=== PATIENT | female | born 1945 | race Two or more races ===

== ENCOUNTER 2024-07-14 11:26 | Inpatient (IN) | payer OTHER ==
[~2024-07-14] VITALS: Ht 165.1 cm; Wt 70.6 kg
[~2024-07-14 11:26] MED LIST: ASPI81TA28 PO; ATOR20TA50 PO; BACL5TAB2 PO; CALC-479 PO; CYCL0.05 EACHEYE; DICL1GEL73 TD; FEXO-47 PO; GABA-1308 PO; MAGN400T40 PO; MECL-90 PO; METO25TA5 PO; RIVA20TA PO
[2024-07-14 12:12] LABS: Basophils # (auto) 0.1 10 ^3/uL (0-0.2); Basophils % (auto) 1.2 % (0.0-2.0); Eosinophils # (auto) 0.1 10 ^3/uL (0-0.8); Eosinophils % (auto) 1.8 % (0.0-7.0); Hematocrit 42.7 % (36.0-46.0); Hemoglobin 14.6 g/dL (12.2-16.2); Lymphocytes # (auto) 1.5 10 ^3/uL (0.4-5.4); Lymphocytes % (auto) 22.6 % (10.0-50.0); Mean Corpuscular Hgb Conc. 34.3 g/dL (32.0-36.0); Mean Corpuscular Volume 96.1 fL (80.0-100.0); Monocytes # (auto) 0.5 10 ^3/uL (0-1.3); Monocytes % (auto) 7.1 % (0.0-12.0); Neutrophils # (auto) 4.5 10 ^3/uL (1.6-8.6); Neutrophils % (auto) 67.3 % (37.0-80.0); Platelet Count (auto) 206 10^3/uL (140-450); Red Blood Cells 4.44 10^6/uL (4.0-5.20); Red Cell Distribution Width 14.2 % (11.8-14.3); White Blood Cell 6.7 10^3/uL (4.4-10.8)
[2024-07-14 12:25] LABS: Alanine Aminotransferase 35 U/L (7-40); Albumin 4.2 g/dL (3.2-4.8); Alkaline Phosphatase 98 U/L (46-116); Anion Gap 8 (5-15); Aspartate Aminotransferase 31 U/L (13-40); BUN/Creatinine Ratio 15.2 (10.0-20.0); Blood Urea Nitrogen 14 mg/dL (9-23); Carbon Dioxide 27 mmol/L (20-31); Chloride 110 mmol/L (98-107); Glucose 150 mg/dL (74-106); Potassium 3.9 mmol/L (3.5-5.1); Sodium 145 mmol/L (136-145)
[2024-07-14 12:26] LABS: Bilirubin, Total 1.6 mg/dL (0.2-1.0); Total Protein 6.7 g/dL (5.7-8.2)
[2024-07-14] MEDS: ASPirin 81 mg TAB PO ONE ×2 (12:53→20:45)
[2024-07-14 18:42] LABS: Urine Bacteria FEW /hpf (None Seen); Urine Blood Negative /uL (Negative); Urine Clarity Turbid (Clear); Urine Color Yellow (Yellow); Urine Mucus FEW (None Seen); Urine Protein, UAD Negative (Negative); Urine Urobilinogen Normal (Negative); Urine WBC 40 /hpf (0 - 5); Urine pH 6.5 (5.0-9.0)
[2024-07-14 20:25] VITALS: PULSE 54; RESP 16; O2SAT 96
[2024-07-14] MEDS ORDERED: MORPHINE SULFATE INJ 2 MG/ml SYRG IV PRN (20:45)
[2024-07-14] MEDS ORDERED: ACETAMINOPHEN 500 MG TAB PO PRN (20:45)
[2024-07-14] MEDS: ATORVASTATIN 20 MG TAB PO ONE (20:45)
[2024-07-14 21:14] LABS: Amphetamine Screen, Urine Neg (NEGATIVE); Barbiturate Scree,Urine Neg (NEGATIVE); Benzodiazephine Screen, Urine Neg (NEGATIVE); Cannabinoid Screen, Urine Neg (NEGATIVE); Cocaine Screen, Urine Neg (NEGATIVE); Opiate Scree,Urine Neg (NEGATIVE); Phencyclidine Screen, Urine Neg (NEGATIVE)
[2024-07-14 22:35] LABS: INR 1.25 (0.9-1.15); Partial Thromboplastin Time 35.4 SEC (24.5-34.5)
[2024-07-15] VITALS (11 sets, daily range): BP systolic 116–182; BP diastolic 57–80; PULSE 60–117; RESP 14–18; TEMP 97.7–99.6; O2SAT 94–98
[2024-07-15] MEDS ORDERED: hydrALAZINE HCL 20 MG/ML VL IV PRN (01:00)
[2024-07-15] MEDS: ENOXAPARIN SOD 100 MG/1 ML SYRINGE SC ONE (03:46)
[2024-07-15] MEDS: FUROSEMIDE 20 MG/2 ML VIAL IV ONE (03:46)
[2024-07-15] MEDS: cefTRIAXone 1GM/50ML D5W 50 ML IV SCH (03:46)
[2024-07-15] MEDS ORDERED: SODIUM CHLORIDE 0.9% 1,000 ML IV SCH (04:00)
[2024-07-15] MEDS ORDERED: NITROGLYCERIN 0.4 MG SL TAB SL PRN (04:30)
[2024-07-15 09:28] LABS: Basophils # (auto) 0.1 10 ^3/uL (0-0.2); Basophils % (auto) 1.2 % (0.0-2.0); Eosinophils # (auto) 0.1 10 ^3/uL (0-0.8); Eosinophils % (auto) 1.3 % (0.0-7.0); Hematocrit 44.5 % (36.0-46.0); Hemoglobin 15.1 g/dL (12.2-16.2); Lymphocytes # (auto) 1.6 10 ^3/uL (0.4-5.4); Lymphocytes % (auto) 22.6 % (10.0-50.0); Mean Corpuscular Hemoglobin 32.3 pg (28.0-32.0); Mean Corpuscular Volume 94.8 fL (80.0-100.0); Monocytes # (auto) 0.7 10 ^3/uL (0-1.3); Monocytes % (auto) 9.9 % (0.0-12.0); Neutrophils # (auto) 4.5 10 ^3/uL (1.6-8.6); Nucleated Red Blood Cells % 0.1 %; Platelet Count (auto) 216 10^3/uL (140-450); Red Blood Cells 4.69 10^6/uL (4.0-5.20); Red Cell Distribution Width 14.2 % (11.8-14.3); White Blood Cell 6.9 10^3/uL (4.4-10.8)
[2024-07-15 09:57] LABS: Chloride 109 mmol/L (98-107); Potassium 3.6 mmol/L (3.5-5.1); Sodium 146 mmol/L (136-145)
[2024-07-15 09:58] LABS: Anion Gap 8 (5-15); Calcium 9.6 mg/dL (8.7-10.4); Carbon Dioxide 29 mmol/L (20-31)
[2024-07-15 10:03] LABS: BUN/Creatinine Ratio 17.4 (10.0-20.0); Blood Urea Nitrogen 16 mg/dL (9-23); Glucose 101 mg/dL (74-106); Triglycerides 65 mg/dL (< 150)
[2024-07-15 10:04] LABS: LDL Cholesterol 41 mg/dL (< 100)
[2024-07-15 10:05] LABS: Cholesterol 114 mg/dL (< 200); HDL Cholesterol 60 mg/dL (40-59)
[2024-07-15] MEDS: FUROSEMIDE 20 MG/2 ML VIAL IV SCH (10:30)
[2024-07-15] MEDS: ASPirin 81 mg TAB PO SCH (10:33)
[2024-07-15] MEDS ORDERED: OMEG1CAP87 PO (13:18)
[2024-07-15] MEDS ORDERED: MULT-1153 PO (13:18)
[2024-07-15] MEDS ORDERED: B COCAP12 PO (13:18)
[2024-07-15] MEDS ORDERED: BACL10TA PO (13:18)
[2024-07-15] MEDS ORDERED: METO-158 PO (13:18)
[2024-07-15] MEDS ORDERED: CYAN-17 PO (13:18)
[2024-07-15] MEDS ORDERED: ERGO20002 PO (13:18)
[2024-07-15] MEDS ORDERED: MELA10CA PO (13:18)
[2024-07-15] MEDS ORDERED: FEXO-42 PO (13:18)
[2024-07-15] MEDS ORDERED: ARTISOL13 EACHEYE (13:18)
[2024-07-15] MEDS: ENOXAPARIN SOD 80 MG/0.8ML SYRINGE SC ONE (16:29)
[2024-07-15] MEDS: ATORVASTATIN 20 MG TAB PO SCH (21:15)
[2024-07-15] MEDS: METOPROLOL TARTRATE 25 MG TAB PO SCH (21:15)
[2024-07-15] MEDS: ENOXAPARIN SOD 100 MG/1 ML SYRINGE SC SCH (22:00)
[2024-07-15] MEDS ORDERED: ENOXAPARIN SOD 80 MG/0.8ML SYRINGE SC SCH (22:00)
[2024-07-16] VITALS (8 sets, daily range): BP systolic 109–159; BP diastolic 57–98; PULSE 58–118; RESP 16–18; TEMP 98–99; O2SAT 91–100
[2024-07-16 06:47] LABS: Basophils # (auto) 0.1 10 ^3/uL (0-0.2); Basophils % (auto) 2.1 % (0.0-2.0); Eosinophils # (auto) 0.2 10 ^3/uL (0-0.8); Eosinophils % (auto) 2.3 % (0.0-7.0); Hematocrit 45.1 % (36.0-46.0); Hemoglobin 15.4 g/dL (12.2-16.2); Lymphocytes # (auto) 2.1 10 ^3/uL (0.4-5.4); Lymphocytes % (auto) 31.1 % (10.0-50.0); Mean Corpuscular Hemoglobin 32.7 pg (28.0-32.0); Mean Corpuscular Hgb Conc. 34.2 g/dL (32.0-36.0); Mean Corpuscular Volume 95.4 fL (80.0-100.0); Monocytes # (auto) 0.7 10 ^3/uL (0-1.3); Monocytes % (auto) 11.1 % (0.0-12.0); Neutrophils # (auto) 3.5 10 ^3/uL (1.6-8.6); Neutrophils % (auto) 53.4 % (37.0-80.0); Nucleated Red Blood Cells % 0.1 %; Platelet Count (auto) 221 10^3/uL (140-450); Red Blood Cells 4.72 10^6/uL (4.0-5.20); Red Cell Distribution Width 14.1 % (11.8-14.3); White Blood Cell 6.6 10^3/uL (4.4-10.8)
[2024-07-16 07:01] LABS: Anion Gap 10 (5-15); Carbon Dioxide 28 mmol/L (20-31); Chloride 107 mmol/L (98-107); Potassium 3.3 mmol/L (3.5-5.1); Sodium 145 mmol/L (136-145)
[2024-07-16 07:02] LABS: Calcium 9.5 mg/dL (8.7-10.4)
[2024-07-16 07:07] LABS: BUN/Creatinine Ratio 18.2 (10.0-20.0); Blood Urea Nitrogen 18 mg/dL (9-23); Glucose 103 mg/dL (74-106)
[2024-07-16] MEDS: POTASSIUM CHL 20 Meq TABLET PO ONE (09:16)
[2024-07-16 18:34] LABS: INR 1.09 (0.9-1.15); Partial Thromboplastin Time 29.8 SEC (24.5-34.5); Prothrombin Time 11.5 sec (9.3-11.8)
[2024-07-16] MEDS: MELATONIN 5 MG TAB PO ONE (22:21)
[2024-07-17] VITALS (10 sets, daily range): BP systolic 81–125; BP diastolic 45–74; PULSE 55–93; RESP 12–20; TEMP 97.6–98.7; O2SAT 96–100
[2024-07-17 08:22] LABS: Anion Gap 7 (5-15); Carbon Dioxide 29 mmol/L (20-31); Chloride 109 mmol/L (98-107); Potassium 3.8 mmol/L (3.5-5.1); Sodium 145 mmol/L (136-145)
[2024-07-17 08:24] LABS: Calcium 9.7 mg/dL (8.7-10.4)
[2024-07-17 08:28] LABS: BUN/Creatinine Ratio 24.7 (10.0-20.0); Blood Urea Nitrogen 24 mg/dL (9-23); Glucose 104 mg/dL (74-106)
[2024-07-17] MEDS ORDERED: ENOXAPARIN SOD 40 MG/0.4 ML SYRINGE SC SCH (10:00)
[2024-07-17] MEDS: IODIXANOL 320MG/ML 100ML BTL IV ONE (12:12)
[2024-07-17] MEDS: HEPARIN IN NS 1000Units/500mL 1,500 ML ONE (12:12)
[2024-07-17] MEDS: fentaNYL CITRATE 100 MCG/2 ML VL ONE (12:43)
[2024-07-17] MEDS: HEPARIN SODIUM (PORCINE) 5000 UNITS/ML 1ML VIAL ONE (12:43)
[2024-07-17] MEDS: MIDAZOLAM HCL 2MG/2ML 2ml VIAL (1mg/ml) ONE (12:44)
[2024-07-17] MEDS: ANGIOMAX 250 MG VIAL IV ONE (12:44)
[2024-07-17] MEDS: VERAPAMIL 2.5MG/ML INJ 2ML VIAL IV ONE (12:44)
[2024-07-17] MEDS: SODIUM CHL 0.9% 0 ML ONE (12:44)
[2024-07-17] MEDS: LIDOCAINE 2%HCL (LOCAL ANESTH.) INJ 20ML MDV ONE (12:44)
[2024-07-17] MEDS: MELATONIN 5 MG TAB PO ONE (20:52)
[2024-07-18 00:51] VITALS: BP 98/45; PULSE 76; RESP 17; TEMP 98.2; O2SAT 94
[2024-07-18 05:00] VITALS: BP 125/59; PULSE 64; RESP 16; TEMP 98; O2SAT 95
[2024-07-18 07:16] LABS: Anion Gap 7 (5-15); Carbon Dioxide 27 mmol/L (20-31); Chloride 109 mmol/L (98-107); Potassium 3.7 mmol/L (3.5-5.1); Sodium 143 mmol/L (136-145)
[2024-07-18 07:17] LABS: Calcium 9.2 mg/dL (8.7-10.4)
[2024-07-18 07:22] LABS: BUN/Creatinine Ratio 23.7 (10.0-20.0); Blood Urea Nitrogen 22 mg/dL (9-23); Glucose 107 mg/dL (74-106)
[2024-07-18 08:00] VITALS: PULSE 55; PULSE 58; RESP 16; O2SAT 98
[2024-07-18 09:00] VITALS: BP 124/58; PULSE 58; RESP 16; TEMP 98.4; O2SAT 98
[2024-07-18] MEDS ORDERED: ATOR20TA50 PO (09:00)
[2024-07-18] MEDS ORDERED: CEPH250C PO (09:00)
[2024-07-18] MEDS ORDERED: CLOP75TA28 PO (09:25)
[2024-07-18] MEDS ORDERED: ASPI81TA28 PO (09:25)
[2024-07-18 12:30] VITALS: BP 126/82; PULSE 70; RESP 18; TEMP 98.3; O2SAT 96
[2024-07-18 13:45] VITALS: BP 124/58; PULSE 135
== END 2024-07-18 15:00 | disposition home or self-care (01) | DRG 190 ==
LOC: ER 11:26 → TELE-CENTR 23:14 → TELE 23:14 → TELE-CENTR 07-15 03:22
PROVIDERS: ADMIT Internal Medicine; ATTEND Internal Medicine
PROC: B211YZZ Fluoroscopy of Multiple Coronary Arteries using Other Contrast (ICD-10-PCS; principal; 2024-07-17)
PROC: 4A023N7 Measurement of Cardiac Sampling and Pressure, Left Heart, Percutaneous Approach (ICD-10-PCS; 2024-07-17)
DX: I21.4 Non-ST elevation (NSTEMI) myocardial infarction (principal); I50.33 Acute on chronic diastolic (congestive) heart failure; I11.0 Hypertensive heart disease with heart failure; E78.5 Hyperlipidemia, unspecified; N30.00 Acute cystitis without hematuria; J98.11 Atelectasis; R91.1 Solitary pulmonary nodule; D35.01 Benign neoplasm of right adrenal gland; R73.03 Prediabetes; I48.91 Unspecified atrial fibrillation; Z86.73 Personal history of transient ischemic attack (TIA), and cerebral infarction without residual deficits; Z79.01 Long term (current) use of anticoagulants
CPT/HCPCS: 36415; 70450; 71046; 71250; 80048; 80053; 80061; 80307; 81001; 82306; 82607; 82962; 83036; 83735; 83880; 84443; 84484; 85025; 85610; 85730; 86850; 86900; 86901; 87086; 93005; 93306; 93458; 93886; 99152; G0378; J2250; Q9967

== ENCOUNTER 2025-09-11 20:39 | Inpatient (IN) | payer MEDICAID, OTHER ==
[~2025-09-11] VITALS: Ht 157.5 cm; Wt 71.0 kg
[~2025-09-11 20:39] MED LIST changes: +ARTISOL13 EACHEYE; +B COCAP12 PO; +CEPH250C PO; +CLOP75TA28 PO; +CYAN-17 PO; +ERGO20002 PO; +MELA10CA PO; +MULT-1153 PO; +OMEG1CAP87 PO
--- NOTE | 2025-09-11 21:15 | ED.PDOC ---
HPI Comments HPI: 80 y/o F, BIBA, with PMHx of AFib and HTN presents to the ED for CC of chest pain. EMS reports, patient is coming from home where she c/o left-sided chest pain s/p argument with her . Patient relays, chest pain to radiate to her back and to worsen with movement. Per EMS, patient took Nitroglycerin prior to their arrival and denied medications en route to the ED. At this time patient c/o 5/10 chest pain. Patient denies shortness of breath, palpitations, dizzine ss, or nausea. No other symptoms or modifying factors are present at this time. PMHx: AFIB, HTN SHX: Denies Any Rx: PLAVIX Allergies: SULMA VASQUEZ: CP, normal exam. HPI: Poor Historian. Patient has extreme medicine in the evening. She has not take her medications yet. REVIEW OF SYSTEMS: CONSTITUTIONAL: Denies acute: fever, diaphoresis, chills, generalized weakness. HEAD: Denies acute: headache, photophobia Eyes: Denies acute: Double vision, vision loss, eye pain, eye discharge. EARS: Denies acute: tinnitus, hearing loss, ear discharge, ear pain, THROAT: Denies acute: sore throat, swelling, difficulty swallowing , pain with swallowing, change in voice. NECK: Denies acute: neck pain, neck swelling, stiff neck. HEART: Denies acute : palpitations, LUNGS: Denies acute: SOB, wheezing, cough, hemoptysis ABDOMEN: Denies acute: abdominal pain, Nausea, Vomiting, diarrhea, melena , hematemesis, hematochezia SKIN: Denies acute: rash, redness, lesions, itchiness. EXTREMITIES: Denies acute: calf pain, numbness, tingling, weakness, denies pain in extremity. Denies acute: Low back pain. Neuro: Denies acute: focal neurological deficit, motor or sensory focal neurological deficit, tremors, seizure like activity, confusion, dizziness, change in mental status, loss of bowel or bladder function, cauda equina like symptoms. : Denies acute: dysuria, hematuria, flank pain, increase in urinary frequency. PSYCH: Denies acute: hallucination, suicidal ideation, homicidal ideation. FEMALE: Denies acute: abnormal vaginal bleeding, foul odor, unusual discharge. PHYSICAL EXAM: General: ----mild----acute distress, awake and alert. Head: normocephalic, atraumatic. No raccoon's eyes, no carrasco sign. Neck: supple, trachea is midline, no swelling. Throat: Normal phonation. Eyes:, no erythema, no purulent discharge, no proptosis, no icterus. Heart: regular rate, regular rhythm, no significant murmur appreciated. Lungs: no apparent respiratory distress, Able to speak in full sentences. No wheezing, no rhonchi, no crackles. No stridors Clear to auscultation bilaterally. Abdomen: non tender to palpation, non distended, soft, no guarding, no rebound, + bowel sounds. Neuro: Awake, Alert, oriented to name, self, situation, follows commands GCS=15. Speech is normal. Skin: no petechia, no purpura, no cyanosis, non-pale, not jaundice. Lower extremities: --no - Pitting edema no deformity, no focal swelling, no calf TTP. Makes eye contact. moves all four extremities. Face: no apparent facial droop. ED COURSE: DISCLAIMER: This medical document was created using an electronic medical record system with voice recognition software and computerized dictation system. Although this document has been carefully reviewed, there might still be some phonetic and typographical errors. Occasional wrong-word or "sound-alike" substitutions may have occurred due to the inherent limitations of voice recognition software. These areas are purely typographical due to imperfections of the software programs and do not reflect any compromise in the patient's medical care. Please read the chart carefully and recognize, using context, where these substitutions have occurred. Time Seen by MD: 21:00 Reviewed Notes: Nurses Notes, Medications, Allergies Allergies: Coded Allergies: Benazepril (Verified Allergy, Unknown, 09/11/25) Information Source: Patient, Emergency Med Personnel Mode of Arrival: EMS Severity: Moderate Timing: Minutes Duration: Minutes Prehospital treatment: None Location: Chest (L) Radiation: Back Cardiac Risk Factors: HTN PE Risk Factors: None History of: None Modifying Factors: Nothing Associated Signs and Symptoms: None Was a procedure done? Was a procedure done?: No CP Differential Dx Differential Diagnosis: Angina, Anxiety / Panic Attack, N/A Differential Diagnosis: Chest Wall Pain, Costochondritis, Esophageal reflux/spasm, Gastritis, Other (Ddx include but not limitied to gastritis, musculoskeletal pain, radiculopathy, atypical chest pain, dissection, aneurysm, ACS, unstable angina, hiatal hernia, GERD, anxiety, costochondritis, PE, pneumothroax, neoplasm, cardiac ischemia, drug abuse, anemia.) X-Ray, Labs, Meds, VS Vital Signs Date Time Temp Pulse Resp B/P (MAP) Pulse Ox O2 Delivery O2 Flow Rate FiO2 09/11/25 20:46 98.4 91 16 161/73 99 98.4 Lab Test 09/11/25 22:48 09/11/25 21:39 Range/Units Troponin I High Sensitivity 625 *H 745 *H </=34 ng/L White Blood Count 6.5 4.4-10.8 10^3/uL Red Blood Count 4.55 4.0-5.20 10^6/uL Hemoglobin 14.4 12.2-16.2 g/dL Hematocrit 43.6 36.0-46.0 % Mean Corpuscular Volume 95.8 80.0-100.0 fL Mean Corpuscular Hemoglobin 31.6 28.0-32.0 pg Mean Corpuscular Hemoglobin Concent 33.0 32.0-36.0 g/dL Red Cell Distribution Width 14.1 11.8-14.3 % Platelet Count 187 140-450 10^3/uL Mean Platelet Volume 8.6 6.9-10.8 fL Neutrophils (%) (Auto) 50.2 37.0-80.0 % Lymphocytes (%) (Auto) 36.8 10.0-50.0 % Monocytes (%) (Auto) 9.3 0.0-12.0 % Eosinophils (%) (Auto) 1.6 0.0-7.0 % Basophils (%) (Auto) 2.1 H 0.0-2.0 % Neutrophils # (Auto) 3.3 1.6-8.6 10 ^3/uL Lymphocytes # (Auto) 2.4 0.4-5.4 10 ^3/uL Monocytes # (Auto) 0.6 0-1.3 10 ^3/uL Eosinophils # (Auto) 0.1 0-0.8 10 ^3/uL Basophils # (Auto) 0.1 0-0.2 10 ^3/uL Nucleated Red Blood Cells 0.1 % Sodium Level 143 136-145 mmol/L Potassium Level 3.6 3.5-5.1 mmol/L Chloride Level 108 H 98-107 mmol/L Carbon Dioxide Level 24 20-31 mmol/L Anion Gap 11 5-15 Blood Urea Nitrogen 13 9-23 mg/dL Creatinine 0.77 0.550-1.02 mg/dL Glomerular Filtration Rate Calc 77 >90 mL/min BUN/Creatinine Ratio 16.9 10.0-20.0 Serum Glucose 102 74-106 mg/dL Calcium Level 9.6 8.7-10.4 mg/dL Total Bilirubin 1.2 H 0.2-1.0 mg/dL Aspartate Amino Transferase (AST) 33 13-40 U/L Alanine Aminotransferase (ALT) 30 7-40 U/L Alkaline Phosphatase 107 46-116 U/L B-Type Natriuretic Peptide 127.81 0-100 pg/mL Total Protein 7.6 5.7-8.2 g/dL Albumin 4.5 3.2-4.8 g/dL Current Medications Medications (Trade) Dose Ordered Sig/Samantha Route Start Time Stop Time Status Last Admin Aspirin (Ecotrin Enteric Coated Tablet) 325 mg ONCE ONCE PO 09/11/25 21:30 09/11/25 21:31 DC 09/12/25 00:19 [place] [address] Ph: [phone] DIAGNOSTIC IMAGING Diagnostic Imaging Report : [id number] Signed PATIENT: SULMA HANNON ACCT: [id number] UNIT: [id number] : 1945 LOC: ER ROOM / BED: / AGE / SEX: 80 / F ADM STATUS: REG ER SERVICE 20 ORDERING PHYSICIAN: ABEL CHAHAL DO PROCEDURE(s): CXRP - CHEST PORTABLE REASON: cp ORDER NUMBER(s): [id number], ACCESSION NUMBER(s): [id number] CHEST RADIOGRAPH INDICATION: cp TECHNIQUE: Single frontal view of the chest was obtained. COMPARISON: None FINDINGS: Pulmonary vascular congestion. No significant pleural effusion. No pneumothorax. Mildly enlarged cardiomediastinal silhouette. IMPRESSION: Pulmonary vascular congestion. ATED BY: NAVEED HOUSTON MD DICTATED DATE/TIME: 09/11/252246 SIGNED BY: NAVEED HOUSTON MD SIGNED DATE/TIME: 09/11/252246 CC: X-Ray, Labs, Meds, VS Comment [place] [address] Ph: [phone] DIAGNOSTIC IMAGING Diagnostic Imaging Report : [id number] Signed PATIENT: SULMA HANNON ACCT: [id number] UNIT: [id number] : 1945 LOC: ER ROOM / BED: / AGE / SEX: 80 / F ADM STATUS: REG ER SERVICE 20 ORDERING PHYSICIAN: ABEL CHAHAL DO PROCEDURE(s): CXRP - CHEST PORTABLE REASON: cp ORDER NUMBER(s): [id number], ACCESSION NUMBER(s): [id number] CHEST RADIOGRAPH INDICATION: cp TECHNIQUE: Single frontal view of the chest was obtained. COMPARISON: None FINDINGS: Pulmonary vascular congestion. No significant pleural effusion. No pneumothorax. Mildly enlarged cardiomediastinal silhouette. IMPRESSION: Pulmonary vascular congestion. ATED BY: NAVEED HOUSTON MD DICTATED DATE/TIME: 09/11/252246 SIGNED BY: NAVEED HOUSTON MD SIGNED DATE/TIME: 09/11/252246 CC: Time of 1ST Reevaluation: 21:30 Reevaluation 1ST: Unchanged Patient Education/Counseling: Diagnosis, Treatment Family Education/Counseling: No Family Present Comments MDM: patient presented with the above HPI.-cardiac----workup was initiated. patient was found with the above mentioned diagnosis. the following medications were ordered: please refer to order lists of meds and tests obtained by myself Dr. Chahal. Patient ED course and VS have been stabilized. Patient has been reassessed in the ED and remained in a stable condition. Pertinent incidental findings were discussed with the patient and/or family. Patient/family voices understanding and is agreeable with plan. Patient has been observed in the ED adequate length of time to insure improvement/stability. Escalation of care considered: Consideration of escalation to observation or admission Patient was found with NSTEMI. Patient was given aspirin. Patient was ADMITTED to the medicine team for further evaluation and treatment of their presentation. All the reports of any imaging studies that were ordered by myself were reviewed by myself. SEPSIS Sepsis Screen Physician Orders Knowledge Architect (09/11/25 ) Chest Portable (09/11/25 21:21) Electrocardigram (09/11/25 21:21) Troponin-I Hs (09/12/25 00:21) Electrocardigram (09/11/25 22:21) Electrocardigram (09/12/25 00:21) Vital Signs Date Time Temp Pulse Resp B/P (MAP) Pulse Ox O2 Delivery O2 Flow Rate FiO2 09/11/25 20:46 98.4 91 16 161/73 99 98.4 Laboratory Tests Test 09/11/25 21:39 White Blood Count 6.5 10^3/uL (4.4-10.8) Medications Medications Dose Ordered Sig/Samantha Route Start Time Stop Time Status Last Admin Dose Admin Aspirin 325 mg ONCE ONCE PO 09/11/25 21:30 09/11/25 21:31 DC 09/12/25 00:19 Departure 1 Departure Time of Disposition: 22:38 Impression: Primary Impression: Chest pain Additional Impressions: NSTEMI (non-ST elevated myocardial infarction) Pulmonary vascular congestion Disposition: ADMITTED INPATIENT [facility]mit to: [facility] Condition: Guarded Discharged With: Self Critical Care Note Critical Care Time?: Yes (45 min-critical care time only) Critical care comment: Due to a high probability of clinically significant, life threatening deterioration, the patient required my highest level of preparedness to intervene emergently and I personally spent this critical care time directly and personally managing the patient. This critical care time included obtaining a history; examining the patient; pulse oximetry; ordering and review of studies; arranging urgent treatment with development of a management plan; evaluation of patient's response to treatment; frequent reassessment; and, discussions with other providers. This critical care time was performed to assess and manage the high probability of imminent, life-threatening deterioration that could result in multi-organ failure. It was exclusive of separately billable procedures and treating other patients and teaching time. Please see my other sections and the rest of the note for further information on patient assessment and treatment. Heart Score Heart Score: Heart Score Response (Comments) Value History Moderate Suspicious 1 EKG Normal 0 Age >65 2 Risk Factors 1 or 2 risk factors 1 Troponin >3 x's Normal limit 2 Total 6 I personally scribed for ABEL CHAHAL DO ([email or web address]) on 09/11/25 at 21:15. Electronically submitted by Estrellita Aragon ([email or web address]). I personally scribed for ABEL CHAHAL DO ([email or web address]) on 09/11/25 at 22:52. Electronically submitted by Tony Carrillo ([email or web address]). ABEL CHAHAL DO Sep 11, 2025 21:15
[2025-09-11 21:54] LABS: Hematocrit 43.6 % (36.0-46.0); Hemoglobin 14.4 g/dL (12.2-16.2); Mean Corpuscular Hemoglobin 31.6 pg (28.0-32.0); Mean Corpuscular Volume 95.8 fL (80.0-100.0); Nucleated Red Blood Cells % 0.1 %
[2025-09-11 22:14] LABS: Alanine Aminotransferase 30 U/L (7-40); Albumin 4.5 g/dL (3.2-4.8); Alkaline Phosphatase 107 U/L (46-116); Anion Gap 11 (5-15); BUN/Creatinine Ratio 16.9 (10.0-20.0); Blood Urea Nitrogen 13 mg/dL (9-23); Calcium 9.6 mg/dL (8.7-10.4); Carbon Dioxide 24 mmol/L (20-31); Glucose 102 mg/dL (74-106); Potassium 3.6 mmol/L (3.5-5.1); Sodium 143 mmol/L (136-145); Total Protein 7.6 g/dL (5.7-8.2)
[2025-09-11 22:18] LABS: Bilirubin, Total 1.2 mg/dL (0.2-1.0); Chloride 108 mmol/L (98-107)
--- NOTE | 2025-09-11 22:49 | DVH ---
CHEST RADIOGRAPH INDICATION: cp TECHNIQUE: Single frontal view of the chest was obtained. COMPARISON: None FINDINGS: Pulmonary vascular congestion. No significant pleural effusion. No pneumothorax. Mildly enlarged cardiomediastinal silhouette. IMPRESSION: Pulmonary vascular congestion.
[2025-09-11] MEDS ORDERED: MORPHINE SULFATE INJ 2 MG/ml SYRG IV PRN (23:45)
[2025-09-11] MEDS ORDERED: NITROGLYCERIN 0.4 MG SL TAB SL PRN (23:45)
[2025-09-12] MEDS: ASPirin-EC 325mg tab PO ONE (00:19)
[2025-09-12 00:35] VITALS: PULSE 68; RESP 16; O2SAT 96
[2025-09-12] MEDS: ATORVASTATIN 20 MG TAB PO SCH (01:26)
[2025-09-12] MEDS ORDERED: ONDANSETRON HCL 4 MG/2 ML VIAL IV PRN (03:45)
--- NOTE | 2025-09-12 03:52 | DVHHP2 ---
History of Present Illness Reason for Visit: Chest pain History of Present Illness 80-year-old female presents for evaluation of chest pain. Patient reports a one day history of left-sided sharp/stabbing pain that is nonradiating. Patient associates shortness for breath. No nausea or vomiting. Currently rates the pain at 5/10 intensity. Patient reports symptoms starting after an argument with her . Past Medical History Hypertension, dyslipidemia, diabetes mellitus, AFib Past Surgical History Denies Family History Noncontributory Smoke: No ALCOHOL: none Drugs: None Lives: with Family Review of Systems Review of Systems Review of systems are currently negative otherwise addressed in HPI. Allergies: Coded Allergies: Benazepril (Verified Allergy, Unknown, 09/11/25) Medications Current Medications Medications Dose Ordered Sig/Samantha Route Start Time Stop Time Status Last Admin Dose Admin Nitroglycerin 0.4 mg Q5MINP PRN SL 09/11/25 23:45 Morphine Sulfate 2 mg Q30M PRN IV 09/11/25 23:45 Aspirin 162 mg DAILY PO 09/12/25 10:00 Atorvastatin Calcium 20 mg HS PO 09/12/25 01:00 09/12/25 01:26 20 MG Rivaroxaban 20 mg QPM PO 09/12/25 18:00 Metoprolol Tartrate 12.5 mg BID PO 09/12/25 10:00 Ondansetron HCl 4 mg Q4HP PRN IV 09/12/25 03:45 Acetaminophen 650 mg Q6HP PRN PO 09/12/25 03:45 Exam Vital Signs Vital Signs Date Time Temp Pulse Resp B/P (MAP) Pulse Ox O2 Delivery O2 Flow Rate FiO2 09/12/25 02:00 77 16 157/87 (110) 95 09/12/25 00:42 98.5 98.5 Exam Gen: 80-year-old female in mild distress Skin: Warm, dry, normal color and texture, no rash. HEENT: Normocephalic atraumatic, mucous membranes moist and pink. Neck: Cervical and supraclavicular nodes normal without enlargement, trachea is midline, thyroid gland is normal without masses. Pulmonary: Clear to auscultation and percussion bilaterally. Cardiac: Regular rate and rhythm. No murmur Abdomen: Soft, nontender, nondistended, bowel sounds present all 4 quadrants, no guarding, no rigidity, no organomegaly. Extremities: No cyanosis, clubbing, no edema Neuro: Cranial nerves II through XII grossly intact, normal affect and speech, no focal motor deficits. Labs/Xrays ORDERING PHYSICIAN: ABEL CHAHAL DO PROCEDURE(s): CXRP - CHEST PORTABLE REASON: cp ORDER NUMBER(s): [id number], ACCESSION NUMBER(s): [id number] CHEST RADIOGRAPH INDICATION: cp TECHNIQUE: Single frontal view of the chest was obtained. COMPARISON: None FINDINGS: Pulmonary vascular congestion. No significant pleural effusion. No pneumothorax. Mildly enlarged cardiomediastinal silhouette. IMPRESSION: Pulmonary vascular congestion. Labs Test 09/12/25 00:40 09/11/25 21:39 Range/Units Troponin I High Sensitivity 625 *H </=34 ng/L White Blood Count 6.5 4.4-10.8 10^3/uL Red Blood Count 4.55 4.0-5.20 10^6/uL Hemoglobin 14.4 12.2-16.2 g/dL Hematocrit 43.6 36.0-46.0 % Mean Corpuscular Volume 95.8 80.0-100.0 fL Mean Corpuscular Hemoglobin 31.6 28.0-32.0 pg Mean Corpuscular Hemoglobin Concent 33.0 32.0-36.0 g/dL Red Cell Distribution Width 14.1 11.8-14.3 % Platelet Count 187 140-450 10^3/uL Mean Platelet Volume 8.6 6.9-10.8 fL Neutrophils (%) (Auto) 50.2 37.0-80.0 % Lymphocytes (%) (Auto) 36.8 10.0-50.0 % Monocytes (%) (Auto) 9.3 0.0-12.0 % Eosinophils (%) (Auto) 1.6 0.0-7.0 % Basophils (%) (Auto) 2.1 H 0.0-2.0 % Neutrophils # (Auto) 3.3 1.6-8.6 10 ^3/uL Lymphocytes # (Auto) 2.4 0.4-5.4 10 ^3/uL Monocytes # (Auto) 0.6 0-1.3 10 ^3/uL Eosinophils # (Auto) 0.1 0-0.8 10 ^3/uL Basophils # (Auto) 0.1 0-0.2 10 ^3/uL Nucleated Red Blood Cells 0.1 % Sodium Level 143 136-145 mmol/L Potassium Level 3.6 3.5-5.1 mmol/L Chloride Level 108 H 98-107 mmol/L Carbon Dioxide Level 24 20-31 mmol/L Anion Gap 11 5-15 Blood Urea Nitrogen 13 9-23 mg/dL Creatinine 0.77 0.550-1.02 mg/dL Glomerular Filtration Rate Calc 77 >90 mL/min BUN/Creatinine Ratio 16.9 10.0-20.0 Serum Glucose 102 74-106 mg/dL Calcium Level 9.6 8.7-10.4 mg/dL Total Bilirubin 1.2 H 0.2-1.0 mg/dL Aspartate Amino Transferase (AST) 33 13-40 U/L Alanine Aminotransferase (ALT) 30 7-40 U/L Alkaline Phosphatase 107 46-116 U/L B-Type Natriuretic Peptide 127.81 0-100 pg/mL Total Protein 7.6 5.7-8.2 g/dL Albumin 4.5 3.2-4.8 g/dL SEPSIS Sepsis Screen Date sepsis recognized/suspect: Sep 11, 2025 Time Sepsis recognized/suspect: 2045 Recent Procedure: No On Antibiotic Therapy: No Respiratory Rate >20: No Heart Rate >90: No Temp<36 C (96.8 F) or >38.3 C: No SBP <90 or MAP <65 mmHG: No New Acute Mental Status Change: No Is the patient on CPAP, BIPAP,: No Physician Orders Electric Shovel Operator (09/11/25 ) Chest Portable (09/11/25 21:21) Electrocardigram (09/11/25 21:21) Electrocardigram (09/11/25 22:21) Electrocardigram (09/12/25 00:21) Admit (09/11/25 23:44) Nitroglycerin Sublingual (Ntrostat Subli (09/11/25 23:45) Morphine Sulfate Injection (09/11/25 23:45) Stat Ekg For Chest Pain (09/11/25 23:44) Notify Of Changes From Base (09/11/25 23:44) Aerial Photographer For 24 Hours (09/11/25 23:44) Emergency Dysrhythmia Protocol (09/11/25 23:44) Rhythm Strips Once Every Shift (09/11/25 23:44) Oxygen By Nasal Cannula (09/11/25 23:44) Aspirin Tablet (09/12/25 10:00) Atorvastatin (Lipitor) (09/12/25 01:00) Rivaroxaban Tablet (Xarelto Tablet) (09/12/25 18:00) Metoprolol Tartrate Tablet (Lopressor Ta (09/12/25 10:00) * Cardiology Consult (09/12/25 03:35) Basic Metabolic Panel (09/12/25 04:00) Ondansetron Hcl (Zofran) (09/12/25 03:45) Cardiac Diet-2gna,Lofat,Lochol (09/12/25 Breakfast) Echo 2d Mode Cardiac Dop (09/12/25 03:35) Condition: Fair (09/12/25 03:35) Acetaminophen Tablet (Tylenol Tablet) (09/12/25 03:45) Bedrest With Bathroom Privileg (09/12/25 03:35) Vital Signs Date Time Temp Pulse Resp B/P (MAP) Pulse Ox O2 Delivery O2 Flow Rate FiO2 09/12/25 02:00 77 16 157/87 (110) 95 09/12/25 01:17 75 09/12/25 01:01 80 24 146/65 (92) 96 09/12/25 00:42 98.5 102 25 113/71 (85) 91 98.5 09/11/25 20:46 98.4 91 16 161/73 99 98.4 Laboratory Tests Test 09/11/25 21:39 White Blood Count 6.5 10^3/uL (4.4-10.8) Medications Medications Dose Ordered Sig/Samantha Route Start Time Stop Time Status Last Admin Dose Admin Aspirin 325 mg ONCE ONCE PO 09/11/25 21:30 09/11/25 21:31 DC 09/12/25 00:19 325 MG Atorvastatin Calcium 20 mg HS PO 09/12/25 01:00 09/12/25 01:26 20 MG Assessment/Plan Assessment/Plan Assessment NSTEMI Hypertension Diabetes mellitus Plan Admit the patient to telemetry to the hospitalist ACS protocol Resume home medications Continue treatment per orders. Plan discussed with: Patient My Orders Orders - HODGE,CLAUDINE AGACNP Procedure Category Date Status Time Admit ADMIT 09/11/25 Transmitted 23:44 Nitroglycerin PHA 09/11/25 In Process Sublingual (Ntrostat 23:45 Morphine Sulfate PHA 09/11/25 In Process Injection 23:45 Stat Ekg For Chest [facility] 09/11/25 In Process Pain 23:44 Notify Md Of Changes [facility] 09/11/25 In Process From Base 23:44 Aerial Photographer For [facility] 09/11/25 In Process 24 Hours 23:44 Emergency Dysrhythmia [facility] 09/11/25 In Process Protocol 23:44 Rhythm Strips Once [facility] 09/11/25 In Process Every Shift 23:44 Oxygen By Nasal RT 09/11/25 Transmitted Cannula 23:44 Aspirin Tablet [facility] 09/12/25 In Process 10:00 Atorvastatin (Lipitor) PHA 09/12/25 In Process 01:00 Rivaroxaban Tablet PHA 09/12/25 In Process (Xarelto Tablet) 18:00 Metoprolol Tartrate PHA 09/12/25 In Process Tablet (Lopressor Ta 10:00 * Cardiology Consult CONS 09/12/25 Transmitted 03:35 Basic Metabolic Panel LAB 09/12/25 Logged 04:00 Ondansetron Hcl PHA 09/12/25 In Process (Zofran) 03:45 Cardiac DIET 09/12/25 Transmitted Diet-2gna,Lofat,Lochol Breakfast Echo 2d Mode Cardiac US 09/12/25 Logged DOP 03:35 Condition: Fair [facility] 09/12/25 In Process 03:35 Acetaminophen Tablet PHA 09/12/25 In Process (Tylenol Tablet) 03:45 Bedrest With Bathroom [facility] 09/12/25 In Process Privileg 03:35 Date of Service: Sep 11, 2025 Billing Provider: BENEDICTO HODGE Common Visit Codes: [id number] INP/OBS CARE (HIGH) BENEDICTO HODGE Sep 12, 2025 03:52
[2025-09-12 07:19] LABS: Sodium 145 mmol/L (136-145)
[2025-09-12 07:20] LABS: Anion Gap 8 (5-15); Carbon Dioxide 28 mmol/L (20-31)
[2025-09-12 07:21] LABS: Calcium 9.3 mg/dL (8.7-10.4)
[2025-09-12 07:25] LABS: Chloride 109 mmol/L (98-107); Glucose 102 mg/dL (74-106); Potassium 3.4 mmol/L (3.5-5.1); Triglycerides 62 mg/dL (< 150)
[2025-09-12 07:26] LABS: BUN/Creatinine Ratio 13.4 (10.0-20.0); Blood Urea Nitrogen 13 mg/dL (9-23)
[2025-09-12 07:27] LABS: Cholesterol 102 mg/dL (< 200); HDL Cholesterol 55 mg/dL (40-59)
[2025-09-12 07:30] VITALS: PULSE 58; RESP 20; O2SAT 93
--- NOTE | 2025-09-12 09:24 | DVHINCON2 ---
Date Seen: Sep 12, 2025 Referring Physician FREDA Lal Reason for Consultation Elevated troponin levels History of Present Illness This is a pleasant 80-year-old female who presented to the emergency room via EMS with a chief complaint of chest pain since yesterday afternoon. Describes her chest pain as non provoked, retrosternal, stabbing in nature, and constant for which she self-medicated with NTG SL 0.4 mg x 1 and ASA 81 mg x 1 and which prompted has been to call 911. At time of assessment, the patient rated her chest pain as 3/10. She underwent multiple 12 lead electrocardiograms x2 revealing an atrial fibrillation rhythm with nonspecific T-wave changes mostly to inferior and anterior leads and an associated QTc as long as 695 ms. Follows up in the outpatient setting with Dr. Valdivia who recently referred her to [facility] for aortic valve replacement evaluation given aortic regurgitation and calcified aortic leaflets. Significant medical history includes atrial fibrillation on Xarelto therapy, aortic valve regurgitation/calcified aortic leaflets pending specialist evaluation, congestive heart failure with preserved LVEF, history of ischemic cerebrovascular accident status post thrombectomy in 2019, right adrenal adenoma, hypertension, prediabetes, osteoarthritis, and depression. Past Medical History Past medical history reviewed. No other significant than mentioned above. Past Surgical History Hysterectomy Family History Family history reviewed. Social History Denies the use of illicit drugs, alcohol, or tobacco use. Allergies: Coded Allergies: Benazepril (Verified Allergy, Unknown, 09/11/25) Home Meds Home medications reviewed. Current Medications Current Medications Medications (Trade) Dose Ordered Sig/Samantha Route PRN Reason Start Time Stop Time Status Last Admin Nitroglycerin (Ntrostat Sublingual) 0.4 mg Q5MINP PRN SL FOR CHEST PAIN 09/11/25 23:45 Morphine Sulfate 2 mg Q30M PRN IV FOR CHEST PAIN 09/11/25 23:45 Aspirin 162 mg DAILY PO 09/12/25 10:00 Atorvastatin Calcium (Lipitor) 10 mg HS PO 09/12/25 22:00 09/12/25 00:55 DC Atorvastatin Calcium (Lipitor) 20 mg HS PO 09/12/25 01:00 09/12/25 01:26 Rivaroxaban (Xarelto Tablet) 20 mg QPM PO 09/12/25 18:00 09/12/25 09:09 DC Metoprolol Tartrate (Lopressor Tablet) 12.5 mg BID PO 09/12/25 10:00 Ondansetron HCl (Zofran) 4 mg Q4HP PRN IV NAUSEA / VOMITING 09/12/25 03:45 Acetaminophen (Tylenol Tablet) 650 mg Q6HP PRN PO PAIN SCALE 1-3 OR TEMP>100.4 09/12/25 03:45 Review of Systems Constitutional: No symptom reported Ears, Nose, & Throat: No symptom reported Eyes: No symptom reported Neurological: No symptoms reported Pulmonary/Respiratory: No symptom reported Cardiovascular: Chest pain Gastrointestinal: No symptom reported Genitourinary: No symptom reported Musculoskeletal: No symptom reported Skin: No symptom reported Psychiatric: No symptom reported Endocrine: No symptom reported Hemotologic/Lymphatic: No symptom reported Vital Signs Vital Signs Date Time Temp Pulse Resp B/P (MAP) Pulse Ox O2 Delivery O2 Flow Rate FiO2 09/12/25 09:11 74 09/12/25 07:30 97.9 20 109/57 (74) 95 97.9 09/12/25 07:30 Room Air* 0 21 Physical Exam General Appearance: Cooperative. Well developed. Well nourished. In no acute distress Head Exam: Normal inspection Neck Exam: Normal inspection. Non-tender. Normal alignment Pulmonary/Respiratory: Chest non-tender. Somewhat diminished bilateral breath sounds Cardiovascular/Chest: Irregular rate and rhythm. S1, S2. AFib, controlled rate. No murmurs. No JVD. Peripheral Pulses: 2+ Radial (R). 2+ Radial (L). 2+ Pedal (R). 2+ Pedal (L) Abdominal Exam: Normal bowel sounds Ankle Exam: Negative ankle edema Lower extremities: Negative lower extremity edema Neuro/Mental Status: A&O x4. Coherent Thoughts/Psych: Normal thought pattern. Appropriate mood and affect. Good judgement and insight Appearance: In no acute distress Skin Exam: Normal inspection. Normal color. Warm. Dry Labs/Diagnostic Data Labs Test 09/12/25 06:42 09/12/25 00:40 09/11/25 21:39 Range/Units D-Dimer, Quantitative 0.45 0.0-0.49 mg/L FEU Sodium Level 145 136-145 mmol/L Potassium Level 3.4 L 3.5-5.1 mmol/L Chloride Level 109 H 98-107 mmol/L Carbon Dioxide Level 28 20-31 mmol/L Anion Gap 8 5-15 Blood Urea Nitrogen 13 9-23 mg/dL Creatinine 0.97 0.550-1.02 mg/dL Glomerular Filtration Rate Calc 58 >90 mL/min BUN/Creatinine Ratio 13.4 10.0-20.0 Serum Glucose 102 74-106 mg/dL Calcium Level 9.3 8.7-10.4 mg/dL Triglycerides Level 62 < 150 mg/dL Cholesterol Level 102 < 200 mg/dL LDL Cholesterol 33 < 100 mg/dL HDL Cholesterol 55 40-59 mg/dL Thyroid Stimulating Hormone (TSH) 2.17 0.55-4.78 uIU/mL Troponin I High Sensitivity 625 *H </=34 ng/L White Blood Count 6.5 4.4-10.8 10^3/uL Red Blood Count 4.55 4.0-5.20 10^6/uL Hemoglobin 14.4 12.2-16.2 g/dL Hematocrit 43.6 36.0-46.0 % Mean Corpuscular Volume 95.8 80.0-100.0 fL Mean Corpuscular Hemoglobin 31.6 28.0-32.0 pg Mean Corpuscular Hemoglobin Concent 33.0 32.0-36.0 g/dL Red Cell Distribution Width 14.1 11.8-14.3 % Platelet Count 187 140-450 10^3/uL Mean Platelet Volume 8.6 6.9-10.8 fL Neutrophils (%) (Auto) 50.2 37.0-80.0 % Lymphocytes (%) (Auto) 36.8 10.0-50.0 % Monocytes (%) (Auto) 9.3 0.0-12.0 % Eosinophils (%) (Auto) 1.6 0.0-7.0 % Basophils (%) (Auto) 2.1 H 0.0-2.0 % Neutrophils # (Auto) 3.3 1.6-8.6 10 ^3/uL Lymphocytes # (Auto) 2.4 0.4-5.4 10 ^3/uL Monocytes # (Auto) 0.6 0-1.3 10 ^3/uL Eosinophils # (Auto) 0.1 0-0.8 10 ^3/uL Basophils # (Auto) 0.1 0-0.2 10 ^3/uL Nucleated Red Blood Cells 0.1 % Total Bilirubin 1.2 H 0.2-1.0 mg/dL Aspartate Amino Transferase (AST) 33 13-40 U/L Alanine Aminotransferase (ALT) 30 7-40 U/L Alkaline Phosphatase 107 46-116 U/L B-Type Natriuretic Peptide 127.81 0-100 pg/mL Total Protein 7.6 5.7-8.2 g/dL Albumin 4.5 3.2-4.8 g/dL Assessment Hypertensive urgency Acute on chronic decompensated HFpEF, NYHA Class II NSTEMI, likely type 2 secondary to above Likely persistent atrial fibrillation, controlled rate (on Xarelto therapy) Aortic valve regurgitation/calcified aortic leaflets Hx of ischemic CVA s/p thrombectomy Prediabetes * Transthoracic echocardiogram from 07/15/2024 revealed LVEF 65% with mild LV diastolic dysfunction, calcified aortic leaflets, and moderate degree aortic regurgitation ([id number] Daniella Mead). * Coronary angiogram with cardiac catheterization from 07/17/2024 revealed no severe epicardial coronary artery disease and microvascular disease with recommendations for aggressive risk factor modification and medical management for the patient in DAPT x1 year uninterrupted ([id number] Daniella Mead). * Twelve lead electrocardiogram revealing atrial fibrillation rhythm at a controlled rate and nonspecific T-wave segment changes. * Troponin levels peaked at 745 ng/L. Plan/Recommendation (Dr. Valdivia) The patient underwent a recent cardiac catheterization with coronary angiogram revealing not significant coronary artery disease. Continue single-antiplatelet therapy as recommended on coronary angiogram report and DOAC therapy for underlying history of atrial fibrillation ([id number] Score 8 points). Avoid antiarrhythmic agents, likely persistent A-Fib. Continue beta-cammie for rate and blood pressure control. Initiate GDMT for HFpEF and uptitrate as toleraed. Initiate preload and afterload reduction. Continue follow up at [facility] for aortic valve replacement evaluation as scheduled. Follow up with Dr. Valdivia within 3-4 weeks post discharge. There is no further cardiac workup indicated at this time. Kindly call in need of further recommendations. Thank you for allowing us to participate in this patient's care. This medical document was created using an electronic medical record system with voice recognition software and computerized dictation system. Although this document has been carefully reviewed, there might still be some phonetic and typographical errors. Occasional wrong-word or ``sound-alike substitutions may have occurred due to the inherent limitations of voice recognition software. These areas are purely typographical due to imperfections of the software programs and do not reflect any compromise in the patient's medical care. Please read the chart carefully and recognize, using context, where these substitutions have occurred. Plan discussed with: Patient, Other NYHA Physical activity limitations: Class2(Slight)fatigue,sob (palpitatns, angina w activityv) Date of Service: Sep 12, 2025 Billing Provider: SEVERO PAINTING Cardiology Common Codes: 50986-DRQCIIH INP/OBS CARE (High) SEVERO PAINTING Sep 12, 2025 09:23
[2025-09-12] MEDS: METOPROLOL TARTRATE 25 MG TAB PO SCH (09:57)
[2025-09-12] MEDS: ACETAMINOPHEN 325 MG TAB PO PRN (11:47)
--- NOTE | 2025-09-12 12:04 | ECG ---
[facility] Test Date: 2025-09-12 Test Time: 09:11:19 Pat Name: SULMA HANNON Department: ED Room: 0248T Gender: F Hr Administrator: DESHAUN : 1945 Requested By: ABEL CHAHAL Order Number: [id number] Reading MD: Rick Kenyon Measurements Intervals [place] Rate: 74 P: 0 NM: 0 QRS: 51 QRSD: 85 T: 246 QT: 626 QTc: 695 Interpretive Statements Atrial fibrillation Nonspecific T abnormalities, diffuse leads Prolonged QT interval Baseline wander in lead(s) V1 Electronically Signed On 09-13-2025 20:09:21 PST by Rick Kenyon Please click the below link to view image of tracing.
[2025-09-12] MEDS: FUROSEMIDE 20 MG/2 ML VIAL IV ONE (14:16)
[2025-09-12] MEDS: POTASSIUM CHL 20 Meq TABLET PO ONE (15:19)
--- NOTE | 2025-09-12 16:12 | DVHPN2 ---
Subjective Patient continues to report having substernal chest pain that has intermittent, rated a 5/10. Reviewed: Care Plan, H&P, Labs, Medications Changes from previous H/P or p: No Changes General: Per HPI Objective Vitals Vital Signs Date Time Temp Pulse Resp B/P (MAP) Pulse Ox O2 Delivery O2 Flow Rate FiO2 09/12/25 14:16 101/46 09/12/25 14:00 59 20 94 09/12/25 07:30 97.9 97.9 09/12/25 07:30 Room Air* 0 21 General Appearance: Alert, Oriented X3, Cooperative, mild distress HEENT: Atraumatic, PERRLA Lungs: Clear to auscultation, Normal air movement Cardiovascular: Normal S1, Normal S2, Other (Atrial fibrillation with controlled rate) Abdomen: Normal bowel sounds, Soft, No tenderness Back: Flank Tenderness, Midline Tenderness Musculoskeletal: Normal sensory function, Normal motor function Neuro: Normal speech Skin: Dry, Intact Psych/Mental Status: Mental status NL, Mood NL Medications Current Medications Medications Dose Ordered Sig/Samantha Route Start Time Stop Time Status Last Admin Dose Admin Nitroglycerin 0.4 mg Q5MINP PRN SL 09/11/25 23:45 Morphine Sulfate 2 mg Q30M PRN IV 09/11/25 23:45 Atorvastatin Calcium 20 mg HS PO 09/12/25 01:00 09/12/25 01:26 20 MG Metoprolol Tartrate 12.5 mg BID PO 09/12/25 10:00 Ondansetron HCl 4 mg Q4HP PRN IV 09/12/25 03:45 Acetaminophen 650 mg Q6HP PRN PO 09/12/25 03:45 09/12/25 11:47 650 MG Aspirin 81 mg DAILY PO 09/13/25 10:00 Rivaroxaban 15 mg QPM PO 09/12/25 18:00 Empaglifozin 10 mg DAILY PO 09/13/25 10:00 Sacubitril/ Valsartan 0.5 tab BID PO 09/12/25 22:00 Future Hold Furosemide 20 mg BIDD IV 09/12/25 18:00 Laboratory Results Laboratory Tests 09/11/25 21:39 09/12/25 06:42 Chemistry Test 09/11/25 21:39 09/12/25 06:42 Albumin 4.5 g/dL (3.2-4.8) Calcium Level 9.6 mg/dL (8.7-10.4) 9.3 mg/dL (8.7-10.4) Total Protein 7.6 g/dL (5.7-8.2) Magnesium Level 2.1 mg/dL (1.6-2.6) Coagulation Test 09/12/25 06:42 D-Dimer, Quantitative 0.45 mg/L FEU (0.0-0.49) Lipid panel Test 09/12/25 06:42 Cholesterol Level 102 mg/dL (< 200) HDL Cholesterol 55 mg/dL (40-59) Triglycerides Level 62 mg/dL (< 150) Cardiac Markers Test 09/11/25 21:39 B-Type Natriuretic Peptide 127.81 pg/mL (0-100) LFT Test 09/11/25 21:39 Alanine Aminotransferase (ALT) 30 U/L (7-40) Alkaline Phosphatase 107 U/L (46-116) Aspartate Amino Transferase (AST) 33 U/L (13-40) Total Bilirubin 1.2 mg/dL (0.2-1.0) H HgA1c, TSH Test 09/12/25 06:42 Thyroid Stimulating Hormone (TSH) 2.17 uIU/mL (0.55-4.78) Labs and/or images reviewed: Labs reviewed by me, Image(s) reviewed by me Assessment/Plan Assessment/Plan Impression: -NSTEMI, questionably type 2 secondary to hypertensive crisis -hypokalemia -primary hypertension -atrial fibrillation -dyslipidemia -? Anxiety disorder -acute on chronic systolic heart failure Plan: -cardiology consultation: Recommendations reviewed. -potassium replacement -IV diuresis -echocardiogram, pending -continue anticoagulation with Xarelto -guideline directed medical therapy with rate control with beta blockers -repeat labs in a.m. Total time spent with patient discussing and formulating plan of care: 35 minutes. This medical document was created using an electronic medical record system with [employer] dictation system. Although this document has been carefully reviewed, there may still be some phonetic and typographical errors. These areas are purely typographical due to imperfections of the software programs, and do not reflect any compromise in the patient's medical care. Plan discussed with: Patient, Other (RN) Date of Service: Sep 12, 2025 Billing Provider: RADHA LINK NP Common Visit Codes: [id number] INP/OBS CARE(HIGH) RADHA LINK NP Sep 12, 2025 16:12
[2025-09-12 16:53] VITALS: BP 140/85; PULSE 84; RESP 16; TEMP 98.7; O2SAT 97
--- NOTE | 2025-09-12 17:00 | ECG ---
[facility] Test Date: 2025-09-12 Test Time: 01:17:07 Pat Name: SULMA HANNON Department: Room: 0248T A Gender: F Envelope Adjuster: FREDA : 1945 Requested By: SEVERO PAINTING Order Number: [id number] Reading MD: Rick Kenyon Measurements Intervals [place] Rate: 75 P: 0 AK: 0 QRS: 22 QRSD: 82 T: 16 QT: 438 QTc: 490 Interpretive Statements Atrial fibrillation Ventricular premature complex Borderline T abnormalities, inferior leads Borderline prolonged QT interval Electronically Signed On 09-13-2025 20:08:36 PST by Rick Kenyon Please click the below link to view image of tracing.
[2025-09-12 17:17] VITALS: BP 140/85; PULSE 103; PULSE 84; RESP 15; RESP 16; TEMP 98.7; O2SAT 97; O2SAT 98
[2025-09-12] MEDS ORDERED: RIVAROXABAN 20 MG TAB PO SCH (18:00)
[2025-09-12] MEDS: RIVAROXABAN 15 MG TAB PO SCH (18:33)
[2025-09-12] MEDS: FUROSEMIDE 20 MG/2 ML VIAL IV SCH (18:33)
[2025-09-12 20:00] VITALS: PULSE 118; PULSE 91; RESP 18; O2SAT 93
[2025-09-12 21:00] VITALS: BP 109/56; PULSE 91; RESP 18; TEMP 98.4; O2SAT 93
[2025-09-12] MEDS ORDERED: ATORVASTATIN 20 MG TAB PO SCH (22:00)
[2025-09-12] MEDS ORDERED: SACUBITRIL-VALSARTAN 24mg/26mg TAB PO SCH (22:00)
--- NOTE | 2025-09-12 23:42 | DVHINCON2 ---
Date Seen: Sep 12, 2025 Referring Physician FREDA Lal Reason for Consultation Elevated troponin levels History of Present Illness This is a pleasant 80-year-old female with a past medical history of atrial fibrillation on Xarelto therapy, aortic valve regurgitation/calcified aortic leaflets pending specialist evaluation, congestive heart failure with preserved LVEF, history of ischemic cerebrovascular accident status post thrombectomy in 2019, right adrenal adenoma, hypertension, prediabetes, osteoarthritis, and depression who presented to the emergency room via EMS with a chief complaint of chest pain since yesterday afternoon. Describes her chest pain as non provoked, retrosternal, stabbing in nature, and constant for which she self-medicated with NTG SL 0.4 mg x 1 and ASA 81 mg x 1 and which prompted has been to call 911. At time of assessment, the patient rated her chest pain as 3/10. She underwent multiple 12 lead electrocardiograms x2 revealing an atrial fibrillation rhythm with nonspecific T-wave changes mostly to inferior and anterior leads and an associated QTc as long as 695 ms. Patient follows up with me in the outpatient setting and I recently referred her to [facility] for aortic valve replacement evaluation given aortic regurgitation and calcified aortic leaflets. TROP 625 x2. Chest x-ray shows pulmonary vascular congestion. Patient was admitted to the hospital. I am asked to consult on this patient. Past Medical History Past medical history reviewed. No other significant than mentioned above. Past Surgical History Hysterectomy Allergies: Coded Allergies: Benazepril (Verified Allergy, Unknown, 09/11/25) Home Meds Reported Medications Cyclosporine (Ophth) (Restasis) 0.05 % Emu, 1 DROP EACHEYE BID, #60 VIAL 3 Refills 09/12/25 Latanoprost (Xalatan) 0.005 % [place], 1 DROP EACHEYE QPM, #2.5 ML 6 Refills 09/12/25 Nitroglycerin (Nitrostat) 0.4 Mg Sub, 0.4 MG SL PRN, INJ 09/12/25 Baclofen (Baclofen) 10 Mg Tab, 10 MG PO DAILY for 30 Days, MG 09/12/25 Magnesium Oxide (MAGNESIUM OXIDE) 400 Mg Tab, 1 TAB PO DAILY, #30 TAB 5 Refills 09/12/25 Gabapentin (Gabapentin) 100 Mg Cap, 100 MG PO TID 09/12/25 Rivaroxaban (XARELTO) 10 Mg Tab, 1 TAB PO DAILY, #10 TAB 09/12/25 Aspirin (Aspir-Low) 81 Mg Tab, 81 MG PO DAILY for 30 Days, MG 09/12/25 Current Medications Current Medications Medications (Trade) Dose Ordered Sig/Samantha Route PRN Reason Start Time Stop Time Status Last Admin Nitroglycerin (Ntrostat Sublingual) 0.4 mg Q5MINP PRN SL FOR CHEST PAIN 09/11/25 23:45 Morphine Sulfate 2 mg Q30M PRN IV FOR CHEST PAIN 09/11/25 23:45 Aspirin 162 mg DAILY PO 09/12/25 10:00 09/12/25 11:28 DC 09/12/25 10:04 Atorvastatin Calcium (Lipitor) 10 mg HS PO 09/12/25 22:00 09/12/25 00:55 DC Atorvastatin Calcium (Lipitor) 20 mg HS PO 09/12/25 01:00 09/12/25 01:26 Rivaroxaban (Xarelto Tablet) 20 mg QPM PO 09/12/25 18:00 09/12/25 09:09 DC Metoprolol Tartrate (Lopressor Tablet) 12.5 mg BID PO 09/12/25 10:00 Ondansetron HCl (Zofran) 4 mg Q4HP PRN IV NAUSEA / VOMITING 09/12/25 03:45 Acetaminophen (Tylenol Tablet) 650 mg Q6HP PRN PO PAIN SCALE 1-3 OR TEMP>100.4 09/12/25 03:45 09/12/25 11:47 Aspirin 81 mg DAILY PO 09/13/25 10:00 UNV Rivaroxaban (Xarelto Tablet) 20 mg QPM PO 09/12/25 18:00 UNV Empaglifozin (Jardiance) 10 mg DAILY PO 09/13/25 10:00 UNV Sacubitril/ Valsartan (Entresto 24-26 Mg tab) 0.5 tab BID PO 09/12/25 22:00 UNV Furosemide (Lasix Injection) 20 mg BIDD IV 09/12/25 18:00 UNV Review of Systems Constitutional: No symptom reported Ears, Nose, & Throat: No symptom reported Eyes: No symptom reported Neurological: No symptoms reported Pulmonary/Respiratory: No symptom reported Cardiovascular: Chest pain Gastrointestinal: No symptom reported Genitourinary: No symptom reported Musculoskeletal: No symptom reported Skin: No symptom reported Psychiatric: No symptom reported Endocrine: No symptom reported Hemotologic/Lymphatic: No symptom reported Vital Signs Vital Signs Date Time Temp Pulse Resp B/P (MAP) Pulse Ox O2 Delivery O2 Flow Rate FiO2 09/12/25 10:00 83 24 97/61 (73) 97 09/12/25 07:30 97.9 97.9 09/12/25 07:30 Room Air* 0 21 Physical Exam GENERAL: Alert and oriented x 3. No acute distress. EYES: PERRL, EOMI. Anicteric. HENT: Moist mucous membranes. LUNGS: Decreased breath sounds. CARDIOVASCULAR: Irregular rate and rhythm. ABDOMEN: Soft, nontender and nondistended. EXTREMITIES: No edema. NEUROLOGIC: No focal neurological deficits. SKIN: Warm, dry. Labs/Diagnostic Data Labs Test 09/12/25 06:42 09/12/25 00:40 09/11/25 21:39 Range/Units D-Dimer, Quantitative 0.45 0.0-0.49 mg/L FEU Sodium Level 145 136-145 mmol/L Potassium Level 3.4 L 3.5-5.1 mmol/L Chloride Level 109 H 98-107 mmol/L Carbon Dioxide Level 28 20-31 mmol/L Anion Gap 8 5-15 Blood Urea Nitrogen 13 9-23 mg/dL Creatinine 0.97 0.550-1.02 mg/dL Glomerular Filtration Rate Calc 58 >90 mL/min BUN/Creatinine Ratio 13.4 10.0-20.0 Serum Glucose 102 74-106 mg/dL Calcium Level 9.3 8.7-10.4 mg/dL Triglycerides Level 62 < 150 mg/dL Cholesterol Level 102 < 200 mg/dL LDL Cholesterol 33 < 100 mg/dL HDL Cholesterol 55 40-59 mg/dL Thyroid Stimulating Hormone (TSH) 2.17 0.55-4.78 uIU/mL Troponin I High Sensitivity 625 *H </=34 ng/L White Blood Count 6.5 4.4-10.8 10^3/uL Red Blood Count 4.55 4.0-5.20 10^6/uL Hemoglobin 14.4 12.2-16.2 g/dL Hematocrit 43.6 36.0-46.0 % Mean Corpuscular Volume 95.8 80.0-100.0 fL Mean Corpuscular Hemoglobin 31.6 28.0-32.0 pg Mean Corpuscular Hemoglobin Concent 33.0 32.0-36.0 g/dL Red Cell Distribution Width 14.1 11.8-14.3 % Platelet Count 187 140-450 10^3/uL Mean Platelet Volume 8.6 6.9-10.8 fL Neutrophils (%) (Auto) 50.2 37.0-80.0 % Lymphocytes (%) (Auto) 36.8 10.0-50.0 % Monocytes (%) (Auto) 9.3 0.0-12.0 % Eosinophils (%) (Auto) 1.6 0.0-7.0 % Basophils (%) (Auto) 2.1 H 0.0-2.0 % Neutrophils # (Auto) 3.3 1.6-8.6 10 ^3/uL Lymphocytes # (Auto) 2.4 0.4-5.4 10 ^3/uL Monocytes # (Auto) 0.6 0-1.3 10 ^3/uL Eosinophils # (Auto) 0.1 0-0.8 10 ^3/uL Basophils # (Auto) 0.1 0-0.2 10 ^3/uL Nucleated Red Blood Cells 0.1 % Total Bilirubin 1.2 H 0.2-1.0 mg/dL Aspartate Amino Transferase (AST) 33 13-40 U/L Alanine Aminotransferase (ALT) 30 7-40 U/L Alkaline Phosphatase 107 46-116 U/L B-Type Natriuretic Peptide 127.81 0-100 pg/mL Total Protein 7.6 5.7-8.2 g/dL Albumin 4.5 3.2-4.8 g/dL Assessment Hypertensive urgency. Acute on chronic decompensated HFpEF, NYHA Class II. NSTEMI, likely type 2 secondary to above. Likely persistent atrial fibrillation, controlled rate (on Xarelto therapy). Aortic valve regurgitation/calcified aortic leaflets. History of ischemic CVA s/p thrombectomy. Prediabetes. Plan/Recommendation I agree with your ongoing assessment and care of plan. Patient has been seen by Rena Danielle NP on my behalf, her and I discussed the plan with the patient. Transthoracic echocardiogram from 07/15/2024 revealed LVEF 65% with mild LV diastolic dysfunction, calcified aortic leaflets, and moderate degree aortic regurgitation ([id number] Daniella Mead). Coronary angiogram with cardiac catheterization from 07/17/2024 revealed no severe epicardial coronary artery disease and microvascular disease with recommendations for aggressive risk factor modification and medical management for the patient in DAPT x1 year uninterrupted ([id number] Daniella Mead). Twelve lead electrocardiogram revealing atrial fibrillation rhythm at a controlled rate and nonspecific T-wave segment changes. Troponin levels peaked at 745 ng/L. The patient underwent a recent cardiac catheterization with coronary angiogram revealing not significant coronary artery disease. Continue single-antiplatelet therapy as recommended on coronary angiogram report and DOAC therapy for underlying history of atrial fibrillation ([id number] Score 8 points). Avoid antiarrhythmic agents, likely persistent A-Fib. Continue beta-cammie for rate and blood pressure control. Continue follow up at [facility] for aortic valve replacement evaluation as scheduled. Follow up with me in my office within 3-4 weeks post discharge. Additional plan as per the hospital course. Plan discussed with: Patient NYHA Physical activity limitations: Class2(Slight)fatigue,sob Date of Service: Sep 12, 2025 Billing Provider: MONICA DARDEN MD Cardiology Common Codes: 57504-[id number] INP/OBS CARE (High) Cardiology Consultation Codes: [id number] CONSULT <45MIN MONICA DARDEN MD Sep 12, 2025 12:15
[2025-09-13] VITALS (8 sets, daily range): BP systolic 112–137; BP diastolic 53–77; PULSE 63–98; RESP 16–18; TEMP 97.6–98.7; O2SAT 90–96
[2025-09-13 06:03] LABS: Anion Gap 10 (5-15); Carbon Dioxide 28 mmol/L (20-31); Chloride 107 mmol/L (98-107); Potassium 3.9 mmol/L (3.5-5.1); Sodium 145 mmol/L (136-145)
[2025-09-13 06:04] LABS: Calcium 9.1 mg/dL (8.7-10.4)
[2025-09-13 06:09] LABS: BUN/Creatinine Ratio 28.9 (10.0-20.0); Glucose 92 mg/dL (74-106); Magnesium 2.0 mg/dL (1.6-2.6)
[2025-09-13 06:14] LABS: Blood Urea Nitrogen 24 mg/dL (9-23)
[2025-09-13] MEDS: EMPAGLIFLOZIN 10 MG TAB PO SCH (09:42)
--- NOTE | 2025-09-13 10:50 | DVHPN2 ---
Subjective Patient denies any chest pain at this time. Reviewed: Care Plan, H&P, Labs, Medications Changes from previous H/P or p: No Changes General: Per HPI Objective Vitals Vital Signs Date Time Temp Pulse Resp B/P (MAP) Pulse Ox O2 Delivery O2 Flow Rate FiO2 09/13/25 09:41 108 135/77 09/13/25 09:12 97.6 17 96 97.6 09/13/25 08:00 Room Air* 0 21 Intake/Output Intake and Output 09/13/25 07:00 Intake Total 400 ml Output Total 400 ml Balance 0 ml Intake Oral 400 ml Output Urine Total 400 ml General Appearance: Alert, Oriented X3, Cooperative, mild distress HEENT: Atraumatic, PERRLA Lungs: Clear to auscultation, Normal air movement Cardiovascular: Normal S1, Normal S2, Other (Atrial fibrillation with controlled rate) Abdomen: Normal bowel sounds, Soft, No tenderness Back: Flank Tenderness, Midline Tenderness Musculoskeletal: Normal sensory function, Normal motor function Neuro: Normal speech Skin: Dry, Intact Psych/Mental Status: Mental status NL, Mood NL Medications Current Medications Medications Dose Ordered Sig/Samantha Route Start Time Stop Time Status Last Admin Dose Admin Nitroglycerin 0.4 mg Q5MINP PRN SL 09/11/25 23:45 Morphine Sulfate 2 mg Q30M PRN IV 09/11/25 23:45 Atorvastatin Calcium 20 mg HS PO 09/12/25 01:00 09/12/25 21:41 20 MG Ondansetron HCl 4 mg Q4HP PRN IV 09/12/25 03:45 Acetaminophen 650 mg Q6HP PRN PO 09/12/25 03:45 09/12/25 11:47 650 MG Aspirin 81 mg DAILY PO 09/13/25 10:00 09/13/25 09:38 81 MG Rivaroxaban 15 mg QPM PO 09/12/25 18:00 09/12/25 18:33 15 MG Empaglifozin 10 mg DAILY PO 09/13/25 10:00 09/13/25 10:09 10 MG Sacubitril/ Valsartan 0.5 tab BID PO 09/12/25 22:00 Hold Furosemide 20 mg BIDD IV 09/12/25 18:00 09/13/25 05:57 20 MG Metoprolol Tartrate 25 mg BID PO 09/13/25 22:00 Laboratory Results Laboratory Tests 09/11/25 21:39 09/13/25 05:02 Chemistry Test 09/13/25 05:02 Calcium Level 9.1 mg/dL (8.7-10.4) Magnesium Level 2.0 mg/dL (1.6-2.6) Labs and/or images reviewed: Labs reviewed by me, Image(s) reviewed by me Assessment/Plan Assessment/Plan Impression: -NSTEMI, questionably type 2 secondary to hypertensive crisis -hypokalemia -primary hypertension -atrial fibrillation -dyslipidemia -? Anxiety disorder -acute on chronic systolic heart failure Plan: Events: Noted to have AFib with RVR. Chest pain free. Increase metoprolol tartrate to 25 mg p.o. b.i.d. -cardiology consultation: Recommendations reviewed. -potassium replacement -IV diuresis -echocardiogram, pending -continue anticoagulation with Xarelto -guideline directed medical therapy with rate control with beta blockers -repeat labs in a.m. Total time spent with patient discussing and formulating plan of care: 35 minutes. This medical document was created using an electronic medical record system with [employer] dictation system. Although this document has been carefully reviewed, there may still be some phonetic and typographical errors. These areas are purely typographical due to imperfections of the software programs, and do not reflect any compromise in the patient's medical care. Plan discussed with: Patient, Other (RN) My Orders Orders - RADHA LINK NP Procedure Category Date Status Time Metoprolol Tartrate PHA 09/13/25 In Process Tablet (Lopressor Ta 22:00 Date of Service: Sep 13, 2025 Billing Provider: RADHA LINK NP Common Visit Codes: [id number] INP/OBS CARE(HIGH) RADHA LINK NP Sep 13, 2025 10:50
[2025-09-13] MEDS: METOPROLOL TARTRATE 25 MG TAB PO ONE (12:16)
--- NOTE | 2025-09-13 15:59 | DVHSR ---
APPROVED REPORT EXAM: Two-dimensional and M-mode echocardiogram with Doppler and color Doppler. Blood Pressure: 109/57 mmHg INDICATION Chest Pain RISK FACTORS Height: 5' 2", Weight: 140 DIMENSIONS LVDd 5.0 (3.8-5.7cm) LA (2D) 3.6 (1.9-4.0cm) Aortic Root 3.2 (2.0-3.7cm) LVDs 3.6 (2.5-4.0cm) LA (MM) (1.9-4.0cm) Aortic Cusp Exc 1.5 (1.5-2.0cm) EF (%) 55.0 (55-70%) Rt. Atrium 3.6 (1.9-4.0cm) Asc. Aorta cm IVSd 1.2 (0.7-1.1cm) RV (D) (1.8-2.4cm) PWd 1.0 (0.7-1.1cm) Mitral Valve Mitral Mitral Stenosis E wave 1.20m/s MV Mean GR. mmHg A wave 0.60m/s MV Peak GR. mmHg E/A ratio 2.0 2D MVA cm2 Aortic Valve Aortic Valve Aortic Stenosis V1 0.60m/s AO Mean GR. 4mmHg V2 1.40m/s AO Peak GR. 9mmHg LVOT Diameter 2.1 (1.8-2.4cm) Doppler NETTA 1.48cm2 AI P 1/2 Time 478.33ms Pulmonic Valve V2 0.50m/s Tricuspid Valve TR Velocity 2.30m/s RVSP 30mmHg Other Information Quality : Technically Limited Rhythm : Conclusion LVEF normal at 50-55%, moderate diastolic dysfunction Right ventricle size and function normal Mild TR
[2025-09-13] MEDS: METOPROLOL TARTRATE 25 MG TAB PO SCH (21:09)
--- NOTE | 2025-09-13 23:29 | DVHPN2 ---
Progress Note - Dictate Date Seen: Sep 13, 2025 Medical Necessity Reason Pt with a Central, PICC or Fol: No Subjective Patient was seen and evaluated in follow up. Patient is resting in bed. She denies any complaints. No further chest pain episodes. BUN 24, TROP 575. Echocardiogram showed LVEF normal at 50-55%. Telemetry reviewed. vital signs Vital Sign Date Time Temp Pulse Resp B/P (MAP) Pulse Ox O2 Delivery O2 Flow Rate FiO2 09/13/25 21:09 98 137/72 09/13/25 21:00 98.4 16 93 98.4 09/13/25 08:00 Room Air* 0 21 Total Intake and Output 09/12/25 09/12/25 09/13/25 15:00 23:00 07:00 Intake Total 400 ml Output Total 400 ml Balance 0 ml medications Current Medications Medications Dose Ordered Sig/Samantha Route Start Time Stop Time Status Last Admin Dose Admin Nitroglycerin 0.4 mg Q5MINP PRN SL 09/11/25 23:45 Morphine Sulfate 2 mg Q30M PRN IV 09/11/25 23:45 Atorvastatin Calcium 20 mg HS PO 09/12/25 01:00 09/13/25 21:09 20 MG Ondansetron HCl 4 mg Q4HP PRN IV 09/12/25 03:45 Acetaminophen 650 mg Q6HP PRN PO 09/12/25 03:45 09/12/25 11:47 650 MG Aspirin 81 mg DAILY PO 09/13/25 10:00 09/13/25 09:38 81 MG Rivaroxaban 15 mg QPM PO 09/12/25 18:00 09/13/25 17:53 15 MG Empaglifozin 10 mg DAILY PO 09/13/25 10:00 09/13/25 10:09 10 MG Sacubitril/ Valsartan 0.5 tab BID PO 09/12/25 22:00 Hold Furosemide 20 mg BIDD IV 09/12/25 18:00 09/13/25 17:53 20 MG Metoprolol Tartrate 25 mg BID PO 09/13/25 22:00 09/13/25 21:09 25 MG objective GENERAL: Alert and oriented x 3. No acute distress. EYES: PERRL, EOMI. Anicteric. HENT: Moist mucous membranes. LUNGS: Decreased breath sounds. CARDIOVASCULAR: Irregular rate and rhythm. ABDOMEN: Soft, nontender and nondistended. EXTREMITIES: No edema. NEUROLOGIC: No focal neurological deficits. SKIN: Warm, dry. laboratory and microbiology Laboratory Tests 09/13/25 05:02 09/11/25 21:39 Test 09/13/25 05:02 Range/Units Serum Glucose 92 74-106 mg/dL Problem List Hypertensive urgency. Acute on chronic decompensated HFpEF, NYHA Class II. NSTEMI, likely type 2 secondary to above. Likely persistent atrial fibrillation, controlled rate (on Xarelto therapy). Aortic valve regurgitation/calcified aortic leaflets. History of ischemic CVA s/p thrombectomy. Prediabetes. Assessment/Plan Continued all current supportive medical care. Aspirin, Lipitor, Metoprolol. Diuretics with Lasix. Morphine for pain management. Xarelto. Additional plan as per the hospital course. Plan discussed with: Patient MONICA DARDEN MD Sep 13, 2025 21:55
[2025-09-14 01:00] VITALS: BP 123/70; PULSE 65; RESP 17; TEMP 98.1; O2SAT 96
[2025-09-14 05:00] VITALS: BP 100/53; PULSE 106; RESP 18; TEMP 98.1; O2SAT 100
[2025-09-14 08:00] VITALS: PULSE 76
[2025-09-14 09:00] VITALS: BP 104/96; PULSE 54; RESP 20; TEMP 98.5; O2SAT 93
[2025-09-14 13:00] VITALS: BP 98/54; PULSE 78; RESP 20; TEMP 98.6; O2SAT 99
[2025-09-14] MEDS ORDERED: SACU1TAB PO (13:48)
[2025-09-14] MEDS ORDERED: ATOR20TA50 PO (13:48)
[2025-09-14] MEDS ORDERED: ASPI-325 PO (13:48)
[2025-09-14] MEDS ORDERED: EMPA1TAB PO (13:48)
[2025-09-14] MEDS ORDERED: RIV15T PO (13:48)
--- NOTE | 2025-09-14 13:52 | DVHDS2 ---
Discharge Summary Date of Admission Sep 11, 2025 at 23:44 Date of Discharge: Sep 14, 2025 Admitting Diagnosis NSTEMI Labs/Diagnostic Data: Laboratory Results Test 09/13/25 05:02 09/12/25 06:42 09/11/25 21:39 Sodium Level 145 mmol/L (136-145) Potassium Level 3.9 mmol/L (3.5-5.1) Chloride Level 107 mmol/L (98-107) Carbon Dioxide Level 28 mmol/L (20-31) Anion Gap 10 (5-15) Blood Urea Nitrogen 24 mg/dL (9-23) Creatinine 0.83 mg/dL (0.550-1.02) Glomerular Filtration Rate Calc 70 mL/min (>90) BUN/Creatinine Ratio 28.9 (10.0-20.0) Serum Glucose 92 mg/dL (74-106) Calcium Level 9.1 mg/dL (8.7-10.4) Magnesium Level 2.0 mg/dL (1.6-2.6) Troponin I High Sensitivity 575 ng/L (</=34) D-Dimer, Quantitative 0.45 mg/L FEU (0.0-0.49) Triglycerides Level 62 mg/dL (< 150) Cholesterol Level 102 mg/dL (< 200) LDL Cholesterol 33 mg/dL (< 100) HDL Cholesterol 55 mg/dL (40-59) Thyroid Stimulating Hormone (TSH) 2.17 uIU/mL (0.55-4.78) White Blood Count 6.5 10^3/uL (4.4-10.8) Red Blood Count 4.55 10^6/uL (4.0-5.20) Hemoglobin 14.4 g/dL (12.2-16.2) Hematocrit 43.6 % (36.0-46.0) Mean Corpuscular Volume 95.8 fL (80.0-100.0) Mean Corpuscular Hemoglobin 31.6 pg (28.0-32.0) Mean Corpuscular Hemoglobin Concent 33.0 g/dL (32.0-36.0) Red Cell Distribution Width 14.1 % (11.8-14.3) Platelet Count 187 10^3/uL (140-450) Mean Platelet Volume 8.6 fL (6.9-10.8) Neutrophils (%) (Auto) 50.2 % (37.0-80.0) Lymphocytes (%) (Auto) 36.8 % (10.0-50.0) Monocytes (%) (Auto) 9.3 % (0.0-12.0) Eosinophils (%) (Auto) 1.6 % (0.0-7.0) Basophils (%) (Auto) 2.1 % (0.0-2.0) Neutrophils # (Auto) 3.3 10 ^3/uL (1.6-8.6) Lymphocytes # (Auto) 2.4 10 ^3/uL (0.4-5.4) Monocytes # (Auto) 0.6 10 ^3/uL (0-1.3) Eosinophils # (Auto) 0.1 10 ^3/uL (0-0.8) Basophils # (Auto) 0.1 10 ^3/uL (0-0.2) Nucleated Red Blood Cells 0.1 % Total Bilirubin 1.2 mg/dL (0.2-1.0) Aspartate Amino Transferase (AST) 33 U/L (13-40) Alanine Aminotransferase (ALT) 30 U/L (7-40) Alkaline Phosphatase 107 U/L (46-116) B-Type Natriuretic Peptide 127.81 pg/mL (0-100) Total Protein 7.6 g/dL (5.7-8.2) Albumin 4.5 g/dL (3.2-4.8) Other Laboratory Tests 09/13/25 05:02 09/11/25 21:39 Brief Hx & Hospital Course: History of Present Illness 80-year-old female presents for evaluation of chest pain. Patient reports a one day history of left-sided sharp/stabbing pain that is nonradiating. Patient associates shortness for breath. No nausea or vomiting. Currently rates the pain at 5/10 intensity. Patient reports symptoms starting after an argument with her . Course of hospitalization: Patient's blood pressure has been controlled with guideline directed medical therapy. Cardiology consultation was obtained. Patient has had previous angiogram, with referral to Cardiology in [place] for aortic valve replacement. Patient states that she has been out of her medications for the past three days. Troponins are now downtrending. Patient no longer has chest pain. Atrial fibrillation is now controlled. She was continued on anticoagulation with Xarelto in the hospital. Patient will be discharged home and is instructed to follow up with her PCP , Dr. Potts in 1-2 weeks and follow up with the ship's master is Bryce to have her aortic valve replacement scheduled. Patient has had all guideline directed medical therapy as well as anticoagulation she was provided in the hospital prescribed to her at [facility]. Patient was agreeable with discharge plan. Physical examination General: Alert and Oriented x3. No acute distress. Well-nourished. Eyes: EOMI. Anicteric. HENT: Moist mucous membranes. Lungs: Clear to auscultation bilaterally. No accessory muscle use. Cardiovascular: Regular rate and rhythm. No murmur. No JVD. Abdomen: Soft, non-tender and non-distended. No palpable masses. Extremities: No edema. Non-tender. Skin: No rashes or lesions. Warm. Neurologic: No focal neurological deficits. CN II-XII grossly intact, but not individually tested. Psychiatric: Cooperative. Appropriate mood and affect. Total time spent with patient discussing and formulating plan of care: 35 minutes. This medical document was created using an electronic medical record system with [employer] dictation system. Although this document has been carefully reviewed, there may still be some phonetic and typographical errors. These areas are purely typographical due to imperfections of the software programs, and do not reflect any compromise in the patient's medical care. Consults/Reason for consult Cardiology: NSTEMI type 2 Condition at Discharge: Guarded Final Diagnosis/Problems List -NSTEMI, questionably type 2 secondary to hypertensive crisis -hypokalemia -primary hypertension -atrial fibrillation -dyslipidemia -? Anxiety disorder -acute on chronic systolic heart failure -aortic valve stenosis, regurgitation Discharge Disposition: Home Discharge Instruct/Medications Diet: Regular, Cardiac 2g Na,low cholest Follow Up/Referral: PCP in 1-2 weeks [employer] for aortic valve replacement Medications: Refer to medication reconciliation form Scheduled Artificial Tear Solution (Artificial Tears), 1 DROP EACHEYE QIDPRN, (Reported) Aspirin (Aspirin Ec), 1 TAB PO DAILY Aspirin (Aspirin Low Dose), 81 MG PO DAILY Atorvastatin Calcium (Atorvastatin Calcium), 40 MG PO HS Atorvastatin Calcium (Atorvastatin Calcium), 20 MG PO HS B Complex W/ C (B Complex/Vitamin C), 1 CAP PO DAILY, (Reported) Baclofen (Baclofen), 1 TAB PO HS, (Reported) Calcium Carbonate-Cholecalcife (Calcium 600+D 600-400 mg-Unit), 1 TAB PO BID, (Reported) Cephalexin (Keflex Capsule), 2 CAP PO BID Clopidogrel Bisulfate (Plavix), 1 TAB PO DAILY Cyanocobalamin (B12), 1 CAP PO DAILY, (Reported) Cyclosporine (Ophth) (Restasis), 1 DROP EACHEYE BID, (Reported) Diclofenac Sodium (Topical) (Diclofenac Sodium), 1 % TD QID, (Reported) Empagliflozin (Jardiance), 10 MG PO DAILY Ergocalciferol (Vitamin D), 1 CAP PO DAILY, (Reported) Fexofenadine Hydrochloride (Lovely Allergy), 1 TAB PO BID, (Reported) Gabapentin (Gabapentin), 3 TAB PO TID, (Reported) Magnesium Oxide (Magnesium Oxide), 1 TAB PO DAILY, (Reported) Melatonin (Melatonin), 10 MG PO HS, (Reported) Metoprolol Tartrate (Metoprolol Tartrate), 1 TAB PO BID, (Reported) Multiple Vitamins W/ Minerals (Centrum Minis Women 50+), 1 TAB PO DAILY, (Reported) [place]-3 Fatty Acids (Fish Oil 500 mg), 2 CAP PO TID, (Reported) Rivaroxaban (Xarelto), 1 TAB PO QPM, (Reported) Rivaroxaban (Xarelto Tablet), 15 MG PO QPM Sacubitril-Valsartan (Entresto 24-26 mg), 0.5 TAB PO BID Scheduled PRN Meclizine Hcl (Meclizine Hcl), 1 TAB PO BIDP PRN for DIZZINESS, (Reported) 36 Discharge Statement: "Patient was advised to return to the ER or call 911 if any headaches, dizziness, shortness of breath, chest pain, abdominal pain, bleeding, fevers, or worsening of medical condition. Patient was counseled about treatment plan, medications, possible side effects, patientverbalized understanding. All questions were answered to the best of my ability. This discharge took greater then 30 minutes in planning, reviewing documentation, counseling the patient, and discussing with other team members." ASSESSMENT ASSESSMENT Assessment Date of Service: Sep 14, 2025 Billing Provider: RADHA LINK NP Common Visit Codes: 48182-TLJ/[id number] DISCH DAY >30min RADHA LINK NP Sep 14, 2025 13:52
[2025-09-14 16:48] VITALS: BP 101/58; PULSE 86; RESP 18; TEMP 98.4; O2SAT 95
--- NOTE | 2025-09-14 22:57 | DVHPN2 ---
Progress Note - Dictate Date Seen: Sep 14, 2025 Medical Necessity Reason Pt with a Central, PICC or Fol: No Subjective Patient was seen and evaluated in follow up. Patient has no new complaints at this time. Patient denies any cardiac symptoms. Patient is cardiac stable for discharge. Telemetry reviewed. vital signs Vital Sign Date Time Temp Pulse Resp B/P (MAP) Pulse Ox O2 Delivery O2 Flow Rate FiO2 09/14/25 10:17 109 124/96 09/14/25 09:00 98.5 20 93 98.5 09/13/25 20:00 Room Air* 0 21 Total Intake and Output 09/13/25 09/13/25 09/14/25 15:00 23:00 07:00 Intake Total 950 ml 900 ml Output Total 400 ml Balance 550 ml 900 ml medications Current Medications Medications Dose Ordered Sig/Samantha Route Start Time Stop Time Status Last Admin Dose Admin Nitroglycerin 0.4 mg Q5MINP PRN SL 09/11/25 23:45 Morphine Sulfate 2 mg Q30M PRN IV 09/11/25 23:45 Atorvastatin Calcium 20 mg HS PO 09/12/25 01:00 09/13/25 21:09 20 MG Ondansetron HCl 4 mg Q4HP PRN IV 09/12/25 03:45 Acetaminophen 650 mg Q6HP PRN PO 09/12/25 03:45 09/12/25 11:47 650 MG Aspirin 81 mg DAILY PO 09/13/25 10:00 09/14/25 10:17 81 MG Rivaroxaban 15 mg QPM PO 09/12/25 18:00 09/13/25 17:53 15 MG Empaglifozin 10 mg DAILY PO 09/13/25 10:00 09/14/25 10:17 10 MG Sacubitril/ Valsartan 0.5 tab BID PO 09/12/25 22:00 Hold Furosemide 20 mg BIDD IV 09/12/25 18:00 09/14/25 06:20 20 MG Metoprolol Tartrate 25 mg BID PO 09/13/25 22:00 09/14/25 10:17 25 MG objective GENERAL: Alert and oriented x 3. No acute distress. EYES: PERRL, EOMI. Anicteric. HENT: Moist mucous membranes. LUNGS: Decreased breath sounds. CARDIOVASCULAR: Irregular rate and rhythm. ABDOMEN: Soft, nontender and nondistended. EXTREMITIES: No edema. NEUROLOGIC: No focal neurological deficits. SKIN: Warm, dry. laboratory and microbiology Laboratory Tests 09/13/25 05:02 09/11/25 21:39 Test 09/13/25 05:02 Range/Units Serum Glucose 92 74-106 mg/dL Problem List Hypertensive urgency. Acute on chronic decompensated HFpEF, NYHA Class II. NSTEMI, likely type 2 secondary to above. Likely persistent atrial fibrillation, controlled rate (on Xarelto therapy). Aortic valve regurgitation/calcified aortic leaflets. History of ischemic CVA s/p thrombectomy. Prediabetes. Assessment/Plan Continued all current supportive medical care. Aspirin, Lipitor, Metoprolol. Diuretics with Lasix. Morphine for pain management. Xarelto. Additional plan as per the hospital course. Plan discussed with: Patient MONICA DARDEN MD Sep 14, 2025 12:43
== END 2025-09-14 18:00 | disposition home or self-care (01) | DRG 199 ==
LOC: ER 20:39 → EDBD 20:39 → OVERFLOW 23:44 → EDUNIT# 23:44 → TELE-EAST 09-12 16:46
PROVIDERS: ADMIT Nurse Practitioner Acute Care; ATTEND Nurse Practitioner Acute Care
DX: I16.9 Hypertensive crisis, unspecified (principal); I50.23 Acute on chronic systolic (congestive) heart failure; I21.A1 Myocardial infarction type 2; Z79.01 Long term (current) use of anticoagulants; I11.0 Hypertensive heart disease with heart failure; E11.9 Type 2 diabetes mellitus without complications; I35.2 Nonrheumatic aortic (valve) stenosis with insufficiency; I16.0 Hypertensive urgency; I48.19 Other persistent atrial fibrillation; E87.6 Hypokalemia; E78.5 Hyperlipidemia, unspecified; F41.9 Anxiety disorder, unspecified; Z95.2 Presence of prosthetic heart valve; Z88.8 Allergy status to other drugs, medicaments and biological substances; Z86.73 Personal history of transient ischemic attack (TIA), and cerebral infarction without residual deficits; Z90.710 Acquired absence of both cervix and uterus; Z91.148 Patient's other noncompliance with medication regimen for other reason
CPT/HCPCS: 36415; 71045; 80048; 80053; 80061; 83735; 83880; 84443; 84484; 85025; 85379; 93005; 93306; 99291; G0378